=== PATIENT | male | born 1985 | race Caucasian/White ===

== ENCOUNTER 2016-07-28 10:37 | Emergency (ER) | payer OTHER ==
[2016-07-28 10:58] VITALS: BP 125/76
[2016-07-28] MEDS ORDERED: Ondansetron 4 MG/2 ML SDV IVPUSH ONE (11:28)
[2016-07-28] MEDS ORDERED: Ketorolac 30 MG/ML SDV IVPUSH ONE (11:28)
[2016-07-28] MEDS ORDERED: methylPREDNISolone Sodium Succinate 125 MG/2 ML SDV IVPUSH ONE (11:28)
[2016-07-28] MEDS ORDERED: Sodium Chloride 0.9% 1,000 ML IV ONE (11:28)
[2016-07-28] MEDS ORDERED: diphenhydrAMINE 50 MG/ML SDV IVPUSH ONE (11:28)
[2016-07-28] MEDS ORDERED: Sodium Chloride 0.9% 10 ML Syringe FLUSH PRN (11:29)
[2016-07-28] MEDS ORDERED: Sodium Chloride 0.9% 2.5 ML Syringe FLUSH PRN (11:29)
--- NOTE | 2016-07-28 11:34 | EDM.PDOC ---
ED HPI GENERAL MEDICAL PROBLEM - General Chief Complaint: Headache Stated Complaint: VOMITTING Time Seen by Provider: 07/28/16 11:18 - History of Present Illness INITIAL COMMENTS - FREE TEXT/NARRATIVE: HISTORY AND PHYSICAL: History of present illness: The patient is a 31-year-old male who presents with a history of having a normal day yesterday with normal activities sleeping the whole night and upon awakening this morning having no headache; complaints until he stood up and suddenly felt woozy and had profound nausea. He did not vomit immediately but did have vomiting afterwards and has a frontal headache. Patient also complains of photophobia and tells me that he has a long history of headaches since 2005. He says that sometimes he would get them every day and lost a job because of this headache syndrome but his last headache was about one month ago. Has never seen a neurologist but his family doctor told him that he may have had a migraine-type headache. Patient says this headache is always in the frontal area and does not radiate and is always associated with photophobia nausea and some vomiting. This headache is not any different in character location or associated symptoms. The patient says his headaches usually last 5-6 hours but because this one was more intense he wanted to come in for treatment. He has no blurred vision and has had no recent head trauma. He has no neck pain or stiffness no recent fever chills chest pain or shortness of breath. Patient says his abdomen does hurt but that only after his been vomiting. The patient did not pass out or black out with the onset of the headache or since that time. Review of systems: As per history of present illness and below otherwise all systems reviewed and negative. Past medical history: As per history of present illness and as reviewed below otherwise noncontributory. Surgical history: As per history of present illness and as reviewed below otherwise noncontributory. Social history: No reported history of drug or alcohol abuse. Family history: As per history of present illness and as reviewed below otherwise noncontributory. Physical exam: General: Well-developed well-nourished male who is photophobic or my evaluation and benefits of been reviewed by me. He is cooperative and interactive and speaks clearly and easily HEENT: Atraumatic, normocephalic, pupils reactive, EOM intact, there is tenderness at palpation of the frontal scalp forehead area without gross sinus tenderness, negative for conjunctival pallor or scleral icterus, sclera are not injected denies in the tearing mucous membranes moist, throat clear, neck supple , nontender, trachea midline. There is no cervical adenopathy or nuchal rigidity Lungs: Clear to auscultation, breath sounds equal bilaterally, chest nontender. Heart: S1S2, regular rate and rhythm no overt murmurs Abdomen: Soft, nondistended, nontender. NABS Genitourinary: Deferred. Rectal: Deferred. Extremities: Atraumatic, negative for cords or calf pain. Neurovascular unremarkable. Neuro: Awake, alert, oriented. Cranial nerves II through XII unremarkable. Cerebellum unremarkable. Motor and sensory unremarkable throughout. Exam nonfocal. Diagnostics: CT scan of the head Therapeutics: IV fluids Zofran Toradol Solu-Medrol and benadryl 1225: CT scan results were discussed with the patient and he states that his headache is significantly improved although not completely gone. He has had no nausea and vomiting in the ER. Patient states he would like to try to go home and rest at home and will give him some medications upon discharge as well as referral to neurology and family practice clinic. I took the advice to the patient and reasons to return to the ED and he states understanding. Impression: Headache with history of episodic headaches likely migraines, improving Definitive disposition and diagnosis as appropriate pending reevaluation and review of above. 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 [No Known Home Meds] 07/28/16 [History] Past Medical History HEENT History: Reports: None Cardiovascular History: Reports: None Respiratory History: Reports: None Gastrointestinal History: Reports: None Genitourinary History: Reports: None Musculoskeletal History: Reports: None Neurological History: Reports: None Psychiatric History: Reports: None Endocrine/Metabolic History: Reports: None Hematologic History: Reports: None Oncologic (Cancer) History: Reports: None Dermatologic History: Reports: None - Infectious Disease History Infectious Disease History: Reports: None Social & Family History - Family History Family Medical History: Noncontributory - Tobacco Use Smoking Status *Q: Never Smoker - Caffeine Use Caffeine Use: Reports: None - Recreational Drug Use Recreational Drug Use: No ED ROS GENERAL - Review of Systems Review Of Systems: ROS reveals no pertinent complaints other than HPI. ED EXAM, GENERAL - Physical Exam Exam: See Below (See dictation) Course - Vital Signs Last Recorded V/S: Last Vital Signs Temp 36.4 C 07/28/16 10:55 Pulse 97 07/28/16 10:55 Resp 16 07/28/16 10:55 BP 125/76 07/28/16 10:55 Pulse Ox 98 07/28/16 10:55 - Orders/Labs/Meds Orders: Active Orders 24 hr Category Date Time Status Head wo Cont [CT] Stat Exams 07/28/16 11:28 Taken Sodium Chloride 0.9% [Saline Flush] Med 07/28/16 11:29 Active 10 ml FLUSH ASDIRECTED PRN Sodium Chloride 0.9% [Saline Flush] Med 07/28/16 11:29 Active 2.5 ml FLUSH ASDIRECTED PRN Saline Lock Insert [OM.PC] Stat Oth 07/28/16 11:28 Ordered Medication Orders Sodium Chloride (Saline Flush) 10 ml FLUSH ASDIRECTED PRN PRN Reason: Keep Vein Open Last Admin: 07/28/16 11:40 Dose: 10 ml Sodium Chloride (Saline Flush) 2.5 ml FLUSH ASDIRECTED PRN PRN Reason: Keep Vein Open Last Admin: 07/28/16 11:40 Dose: 2.5 ml Meds: Medications Generic Name Dose Route Start Last Admin Trade Name Freq PRN Reason Stop Dose Admin Sodium Chloride 10 ml 07/28/16 11:29 07/28/16 11:40 Saline Flush FLUSH 10 ml ASDIRECTED PRN Administration Keep Vein Open Sodium Chloride 2.5 ml 07/28/16 11:29 07/28/16 11:40 Saline Flush FLUSH 2.5 ml ASDIRECTED PRN Administration Keep Vein Open Discontinued Medications Generic Name Dose Route Start Last Admin Trade Name Freq PRN Reason Stop Dose Admin Diphenhydramine HCl 50 mg 07/28/16 11:28 07/28/16 11:40 Benadryl IVPUSH 07/28/16 11:29 50 mg ONETIME ONE Administration Sodium Chloride 1,000 mls @ 999 mls/hr 07/28/16 11:28 07/28/16 11:39 Normal Saline IV 07/28/16 12:28 999 mls/hr STAT ONE Administration Ketorolac Tromethamine 30 mg 07/28/16 11:28 07/28/16 11:39 Toradol IVPUSH 07/28/16 11:29 30 mg ONETIME ONE Administration Methylprednisolone Sodium Succinate 125 mg 07/28/16 11:28 07/28/16 11:39 Solu-Medrol IVPUSH 07/28/16 11:29 125 mg ONETIME ONE Administration Ondansetron HCl 4 mg 07/28/16 11:28 07/28/16 11:40 Zofran IVPUSH 07/28/16 11:29 4 mg ONETIME ONE Administration Departure - Departure Time of Disposition: 12:32 Disposition: Home, Self-Care 01 Condition: good Clinical Impression: Other headache syndrome, Migraine Referrals: PCP,None [Primary Care Provider] - Forms: ED Department Discharge Additional Instructions: The following information is given to patients seen in the emergency department who are being discharged to home. This information is to outline your options for follow-up care. We provide all patients seen in our emergency department with a follow-up referral. The need for follow-up, as well as the timing and circumstances, are variable depending upon the specifics of your emergency department visit. If you don't have a primary care physician on staff, we will provide you with a referral. We always advise you to contact your personal physician following an emergency department visit to inform them of the circumstance of the visit and for follow-up with them and/or the need for any referrals to a consulting specialist. The emergency department will also refer you to a specialist when appropriate. This referral assures that you have the opportunity for followup care with a specialist. All of these measure are taken in an effort to provide you with optimal care, which includes your followup. Under all circumstances we always encourage you to contact your private physician who remains a resource for coordinating your care. When calling for followup care, please make the office aware that this follow-up is from your recent emergency room visit. If for any reason you are refused follow-up, please contact the [facility] emergency department at and ask to speak to the emergency department charge nurse. [facility] Primary care- Internal Medicine and Family [facility] [address] [place] [address] [id number] [facility] Specialty care-Neurology Professional Building [address] [place] [address], [address] [place] [address] Physical medications as needed and prescribed, rest and push hydration. Please return to ER as needed and as we discussed in please call for followup both in primary care as well as with her neurologist. - My Orders Last 24 Hours: My Active Orders 07/28/16 11:28 Head wo Cont [CT] Stat Saline Lock Insert [OM.PC] Stat 07/28/16 11:29 Sodium Chloride 0.9% [Saline Flush] 10 ml FLUSH ASDIRECTED PRN Sodium Chloride 0.9% [Saline Flush] 2.5 ml FLUSH ASDIRECTED PRN - Assessment/Plan Last 24 Hours: My Active Orders 07/28/16 11:28 Head wo Cont [CT] Stat Saline Lock Insert [OM.PC] Stat 07/28/16 11:29 Sodium Chloride 0.9% [Saline Flush] 10 ml FLUSH ASDIRECTED PRN Sodium Chloride 0.9% [Saline Flush] 2.5 ml FLUSH ASDIRECTED PRN
[2016-07-28] MEDS ORDERED: Acetaminophen/Butalbital/Caffeine 325-50-40 MG Tab PO ONE (12:35)
--- NOTE | 2016-07-30 17:14 | CT ---
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 Site : 1986 Study: CT Head WO CONT [id number]/18/2017 12:04:25 PM Ordering Physician: Carissa Leal Final Report: INDICATION: PT STATES HEADACHE RADIATING TO BILATERAL EYES STARTING 3 HOURS AGO Technique: Non-contrast head CT scan. Radiation dose reduction techniques applied. Findings: No abnormal foci of altered attenuation in the brain parenchyma. No midline shift or mass effect. No hydrocephalus. Probable small arachnoid cyst located anterior to the left temporal lobe. No other abnormal extra-axial fluid collections. No abnormalities identified in the visualized portions of the paranasal sinuses , skull, and scalp. Impression: No evidence of acute intracranial abnormalities. Dictated by: Rakesh Powell MD @ 07/28/2016 12:18:18 (Electronic Signature) Report Signed by Proxy and Original Signed Document filed in the Medical Record. [facility]
== END 2016-07-28 12:51 | disposition home or self-care (01) ==
LOC: MW.ED 10:37
DX: G44.89 Other headache syndrome (principal); G43.909 Migraine, unspecified, not intractable, without status migrainosus
CPT/HCPCS: 70450; 96361; 96374; 96375; 99284; A9270; J1200; J1885; J2405; J2930; J7040

== ENCOUNTER 2016-08-26 18:21 | Emergency (ER) | payer OTHER ==
[2016-08-26] MEDS ORDERED: Ketorolac 30 MG/ML SDV IVPUSH ONE (18:52)
[2016-08-26] MEDS ORDERED: Sodium Chloride 0.9% 1,000 ML IV ONE (18:52)
--- NOTE | 2016-08-26 19:17 | EDM.PDOC ---
ED HPI GENERAL MEDICAL PROBLEM - General Chief Complaint: General Stated Complaint: FEVER, BODY ACHES, CHILLS, COUGH Time Seen by Provider: 08/26/16 18:45 Source of Information: Reports: Patient History Limitations: Reports: No limitations - History of Present Illness INITIAL COMMENTS - FREE TEXT/NARRATIVE: History of present illness: [31-year-old male presenting with with general complaint of fever cough, congestion and weakness and malaise. Indicates he has had fever and cough off and on for vascular basis but he has felt increasingly worse today.] Review of systems: As per history of present illness and below otherwise all systems reviewed and negative. Past medical history: As per history of present illness and as reviewed below otherwise noncontributory. Surgical history: As per history of present illness and as reviewed below otherwise noncontributory. Social history: No reported history of drug or alcohol abuse. Family history: As per history of present illness and as reviewed below otherwise noncontributory. Physical exam: HEENT: Atraumatic, normocephalic, pupils reactive, negative for conjunctival pallor or scleral icterus, mucous membranes moist,bilateral TM's noted to be red dull and bulgingthroat clear, neck supple, nontender, trachea midline. Lungs: Clear to auscultation, breath sounds equal bilaterally, chest nontender. Heart: S1S2, regular, negative for clicks, rubs, or JVD. Abdomen: Soft, nondistended, nontender. Negative for masses or hepatosplenomegaly. Negative for costovertebral tenderness. Pelvis: Stable nontender. Genitourinary: Deferred. Rectal: Deferred. Extremities: Atraumatic, negative for cords or calf pain. Neurovascular unremarkable. Neuro: Awake, alert, oriented. Cranial nerves II through XII unremarkable. Cerebellum unremarkable. Motor and sensory unremarkable throughout. Exam nonfocal. Diagnostics: [CBC, CMP, RSV, influenza AB] Therapeutics: [IV fluid, Toradol] Impression: [Otitis media and viral syndrome ] Plan: [antibitotics] Definitive disposition and diagnosis as appropriate pending reevaluation and review of above. Generalized Pain Score (Numeric/FACES): 7 - Related Data Allergies Allergy/AdvReac Type Severity Reaction Status Date / Time No Known Allergies Allergy Verified 08/26/16 18:40 Home Meds: Home Meds . [No Known Home Meds] 07/28/16 [History] Past Medical History - Past Health History Medical/Surgical History: Denies Medical/Surgical History HEENT History: Reports: None Cardiovascular History: Reports: None Respiratory History: Reports: None Gastrointestinal History: Reports: None Genitourinary History: Reports: None Musculoskeletal History: Reports: None Neurological History: Reports: None Psychiatric History: Reports: None Endocrine/Metabolic History: Reports: None Hematologic History: Reports: None Oncologic (Cancer) History: Reports: None Dermatologic History: Reports: None - Infectious Disease History Infectious Disease History: Reports: None Social & Family History - Family History Family Medical History: Noncontributory - Tobacco Use Smoking Status *Q: Never Smoker - Caffeine Use Caffeine Use: Reports: Coffee Caffeine Use Comment: 1 cup - Recreational Drug Use Recreational Drug Use: No ED ROS GENERAL - Review of Systems Review Of Systems: See Below (See history of present illness) ED EXAM, GENERAL - Physical Exam Exam: See Below (See history of present illness) Course - Vital Signs Last Recorded V/S: Last Vital Signs Temp 39.2 C H 08/26/16 19:19 Pulse 108 H 08/26/16 18:42 Resp 16 08/26/16 18:42 BP 118/66 08/26/16 18:42 Pulse Ox 95 08/26/16 18:42 - Orders/Labs/Meds Orders: Active Orders 24 hr Category Date Time Status CULTURE STREP A CONFIRMATION [RM] Stat Lab 08/26/16 19:25 Results STREP SCRN A RAPID W CULT CONF [RM] Stat Lab 08/26/16 19:25 Results Labs: Laboratory Tests 08/26/16 08/26/16 Range/Units 19:05 19:05 WBC 7.62 (4.0-11.0) K/uL RBC 4.88 (4.50-5.90) M/uL Hgb 15.5 (13.0-17.0) g/dL Hct 44.1 (38.0-50.0) % MCV 90.4 (80.0-98.0) fL MCH 31.8 (27.0-32.0) pg MCHC 35.1 (31.0-37.0) g/dL RDW Std Deviation 39.8 (28.0-62.0) fl RDW Coeff of Delmy 12 (11.0-15.0) % Plt Count 173 (150-400) K/uL MPV 9.70 (7.40-12.00) fL Neut % (Auto) 64.0 (48.0-80.0) % Lymph % (Auto) 11.5 L (16.0-40.0) % Swisher % (Auto) 9.8 (0.0-15.0) % Eos % (Auto) 14.6 H (0.0-7.0) % Baso % (Auto) 0.1 (0.0-1.5) % Neut # (Auto) 4.9 (1.4-5.7) K/uL Lymph # (Auto) 0.9 (0.6-2.4) K/uL Swisher # (Auto) 0.8 (0.0-0.8) K/uL Eos # (Auto) 1.1 H (0.0-0.7) K/uL Baso # (Auto) 0.0 (0.0-0.1) K/uL Nucleated RBC % 0.0 /100WBC Nucleated RBCs # 0 K/uL Sodium 140 (136-146) mmol/L Potassium 3.6 (3.5-5.1) mmol/L Chloride 107 (98-110) mmol/L Carbon Dioxide 22 (21-31) mmol/L BUN 14 (6.0-23.0) mg/dL Creatinine 1.0 (0.6-1.5) mg/dL Est Cr Clr Drug Dosing 104.50 mL/min Estimated GFR (MDRD) > 60.0 ml/min Glucose 99 (60-110) mg/dL Calcium 9.2 (8.8-10.8) mg/dL Total Bilirubin 0.4 (0.1-1.5) mg/dL AST 20 (5-40) IU/L ALT 20 (8-54) IU/L Alkaline Phosphatase 84 (40-150) Total Protein 7.1 (6.0-8.0) g/dL Albumin 4.4 (3.5-5.0) g/dL Globulin 2.7 (2.0-3.5) g/dL Albumin/Globulin Ratio 1.6 (1.3-2.8) Meds: Medications Discontinued Medications Generic Name Dose Route Start Last Admin Trade Name Freq PRN Reason Stop Dose Admin Sodium Chloride 1,000 mls @ 999 mls/hr 08/26/16 18:52 08/26/16 19:15 Normal Saline IV 08/26/16 19:52 999 mls/hr STAT ONE Administration Ketorolac Tromethamine 30 mg 08/26/16 18:52 08/26/16 19:16 Toradol IVPUSH 08/26/16 18:53 30 mg ONETIME ONE Administration Departure - Departure Time of Disposition: 20:26 Disposition: Home, Self-Care 01 Condition: good Clinical Impression: Otitis media Forms: ED Department Discharge Additional Instructions: The following information is given to patients seen in the emergency department who are being discharged to home. This information is to outline your options for follow-up care. We provide all patients seen in our emergency department with a follow-up referral. The need for follow-up, as well as the timing and circumstances, are variable depending upon the specifics of your emergency department visit. If you don't have a primary care physician on staff, we will provide you with a referral. We always advise you to contact your personal physician following an emergency department visit to inform them of the circumstance of the visit and for follow-up with them and/or the need for any referrals to a consulting specialist. The emergency department will also refer you to a specialist when appropriate. This referral assures that you have the opportunity for follow-up care with a specialist. All of these measure are taken in an effort to provide you with optimal care, which includes your follow-up. Under all circumstances we always encourage you to contact your private physician who remains a resource for coordinating your care. When calling for follow-up care, please make the office aware that this follow-up is from your recent emergency room visit. If for any reason you are refused follow-up, please contact the [facility] Emergency Department at and asked to speak to the emergency department charge nurse. take medication as directed f/u with PCP in 1-2 days return to ED as needed as discussed - My Orders Last 24 Hours: My Active Orders 08/26/16 19:25 CULTURE STREP A CONFIRMATION [RM] Stat STREP SCRN A RAPID W CULT CONF [RM] Stat - Assessment/Plan Last 24 Hours: My Active Orders 08/26/16 19:25 CULTURE STREP A CONFIRMATION [RM] Stat STREP SCRN A RAPID W CULT CONF [RM] Stat
[2016-08-26 19:30] LABS: CHLORIDE,CL 107 mmol/L (98-110); SODIUM,NA 140 mmol/L (136-146)
[2016-08-26 20:27] VITALS: BP 109/52
== END 2016-08-26 20:47 | disposition home or self-care (01) ==
LOC: MW.ED 18:21
DX: H66.90 Otitis media, unspecified, unspecified ear (principal)
CPT/HCPCS: 36415; 80053; 85025; 87081; 87804; 87807; 87880; 96361; 96374; 99283; J1885; J7040; 99284

== ENCOUNTER 2016-08-28 16:35 | Emergency (ER) | payer OTHER ==
[2016-08-28] MEDS ORDERED: Acetaminophen 500 MG Tab PO ONE (17:16)
[2016-08-28] MEDS ORDERED: Sodium Chloride 0.9% 1,000 ML IV ONE (17:18)
--- NOTE | 2016-08-28 17:35 | EDM.PDOC ---
ED HPI SEPSIS - General Chief Complaint: Fever Stated Complaint: TROUBLE BREATHING/CHEST PAIN/VOMITING Time Seen by Provider: 08/28/16 16:47 Source of Information: Reports: Patient History Limitations: Reports: No limitations - History of Present Illness INITIAL COMMENTS - FREE TEXT/NARRATIVE: Presents reporting a a three-day history of headache, body aches, fever, cough, joint aches. He today he vomited 5 times. The patient states that he was in this ER on August 26 for the same symptoms he was diagnosed with a "infection" and sent home on Augmentin. He states that his symptoms have only worsened. He does not smoke has no medical problems and is otherwise healthy. 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 A review of the records indicates he was diagnosed with otitis media and a viral syndrome. Strep screen, RSV and influenza A and B were negative. His white count on that date was 7.6 with 11.5% lymphocytes and 14.6% eosinophils otherwise chemistry and hematology were unremarkable. - Related Data Allergies/ADRs: Allergies Allergy/AdvReac Type Severity Reaction Status Date / Time No Known Allergies Allergy Verified 08/28/16 16:39 Home Meds: Home Meds Amoxicillin/Potassium Clav [Augmentin 875-125 Tablet] 1 tab PO BID 08/28/16 [ History] Past Medical History - Past Health History Medical/Surgical History: Denies Medical/Surgical History HEENT History: Reports: None Cardiovascular History: Reports: None Respiratory History: Reports: None Gastrointestinal History: Reports: None Genitourinary History: Reports: None Musculoskeletal History: Reports: None Neurological History: Reports: None Psychiatric History: Reports: None Endocrine/Metabolic History: Reports: None Hematologic History: Reports: None Oncologic (Cancer) History: Reports: None Dermatologic History: Reports: None - Infectious Disease History Infectious Disease History: Reports: None - Past Surgical History GI Surgical History: Reports: Appendectomy Social & Family History - Family History Family Medical History: Noncontributory - Tobacco Use Smoking Status *Q: Never Smoker Second Hand Smoke Exposure: No - Caffeine Use Caffeine Use: Reports: Coffee Caffeine Use Comment: 1 cup per day - Recreational Drug Use Recreational Drug Use: No ED ROS GENERAL - Review of Systems Review Of Systems: See Below Constitutional: Reports: fever, chills HEENT: Reports: No symptoms Respiratory: Reports: Cough. Denies: Shortness of Breath, Wheezing Cardiovascular: Reports: No symptoms. Denies: Chest pain Endocrine: Reports: no symptoms GI/Abdominal: Reports: Nausea, Vomiting (today only 5 times). Denies: Diarrhea : Reports: no symptoms Musculoskeletal: Reports: joint pain, muscle pain Skin: Reports: no symptoms Neurological: Reports: Headache Psychiatric: Reports: No symptoms Hematologic/Lymphatic: Reports: no symptoms Immunologic: Reports: no symptoms ED EXAM, SEPSIS - Physical Exam Exam: See Below Exam Limited By: No limitations General Appearance: alert, mild distress Ears: normal external exam, other (pink TM left with mild bulge) Nose: normal inspection Throat/Mouth: Normal inspection, Pharyngeal erythema Head: atraumatic, normocephalic Neck: normal inspection. No: lymphadenopathy (L), lymphadenopathy (R) Respiratory/Chest: no respiratory distress, lungs clear Cardiovascular: normal peripheral pulses, regular rate, rhythm, no murmur GI/Abdominal: soft Back: normal inspection Extremities: normal inspection Neurological: alert, oriented, normal cognition Psychiatric: normal affect, normal mood Skin: Warm, Dry, Intact, Normal color, No rash Course - Vital Signs Last Recorded V/S: Last Vital Signs Temp 38.5 C H 08/28/16 18:41 Pulse 135 H 08/28/16 18:41 Resp 16 08/28/16 18:41 BP 120/68 08/28/16 18:41 Pulse Ox 98 08/28/16 18:41 - Orders/Labs/Meds Orders: Active Orders 24 hr Category Date Time Status Chest 2V [CR] Stat Exams 08/28/16 18:43 Taken CULTURE BLOOD [BC] Stat Lab 08/28/16 17:35 Received CULTURE BLOOD [BC] Stat Lab 08/28/16 17:40 Received Labs: Laboratory Tests 08/28/16 08/28/16 Range/Units 17:35 18:50 WBC 5.19 (4.0-11.0) K/uL RBC 4.96 (4.50-5.90) M/uL Hgb 15.7 (13.0-17.0) g/dL Hct 45.6 (38.0-50.0) % MCV 91.9 (80.0-98.0) fL MCH 31.7 (27.0-32.0) pg MCHC 34.4 (31.0-37.0) g/dL RDW Std Deviation 41.3 (28.0-62.0) fl RDW Coeff of Delmy 12 (11.0-15.0) % Plt Count 147 L (150-400) K/uL MPV 10.00 (7.40-12.00) fL Neut % (Auto) 67.4 (48.0-80.0) % Lymph % (Auto) 15.6 L (16.0-40.0) % [place] % (Auto) 11.6 (0.0-15.0) % Eos % (Auto) 5.2 (0.0-7.0) % Baso % (Auto) 0.2 (0.0-1.5) % Neut # (Auto) 3.5 (1.4-5.7) K/uL Lymph # (Auto) 0.8 (0.6-2.4) K/uL [place] # (Auto) 0.6 (0.0-0.8) K/uL Eos # (Auto) 0.3 (0.0-0.7) K/uL Baso # (Auto) 0.0 (0.0-0.1) K/uL Nucleated RBC % 0.0 /100WBC Nucleated RBCs # 0 K/uL Urine Color YELLOW Urine Appearance CLEAR Urine pH 5.5 (5.0-8.0) Ur Specific [place] >= 1.030 (1.001-1.035) Urine Protein NEGATIVE (NEGATIVE) mg/dL Urine Glucose (UA) NEGATIVE (NEGATIVE) mg/dL Urine Ketones NEGATIVE (NEGATIVE) mg/dL Urine Occult Blood TRACE-LYSED (NEGATIVE) Urine Nitrite NEGATIVE (NEGATIVE) Urine Bilirubin NEGATIVE (NEGATIVE) Urine Urobilinogen 0.2 (<2.0) EU/dL Ur Leukocyte Esterase NEGATIVE (NEGATIVE) Urine RBC 0-2 (0-2/HPF) Urine WBC 0-1 (0-5/HPF) Ur Epithelial Cells RARE (NONE-FEW) Urine Bacteria RARE (NEGATIVE) Meds: Medications Discontinued Medications Generic Name Dose Route Start Last Admin Trade Name Freq PRN Reason Stop Dose Admin Acetaminophen 1,000 mg 08/28/16 17:16 08/28/16 17:26 Tylenol Extra Strength PO 08/28/16 17:17 1,000 mg ONETIME ONE Administration Sodium Chloride 1,000 mls @ 999 mls/hr 08/28/16 17:18 08/28/16 17:26 Normal Saline IV 08/28/16 18:18 999 mls/hr .BOLUS ONE Administration Departure - Departure Time of Disposition: 20:11 Disposition: Home, Self-Care 01 Condition: good Clinical Impression: Fever Qualifiers: Encounter type: subsequent encounter Referrals: PCP,None [Primary Care Provider] - [facility] [Outside] [facility] [Outside] Forms: ED Department Discharge Additional Instructions: 1. Finish your antibiotics. 2. Drink plenty of fluids 3. You may take 500-1000mg of Tylenol three times a day for body aches and fever. 4. Follow up with your primary care provider promptly if symptoms worsen or do not improve as expected. - My Orders Last 24 Hours: My Active Orders 08/28/16 17:35 CULTURE BLOOD [BC] Stat 08/28/16 17:40 CULTURE BLOOD [BC] Stat 08/28/16 18:43 Chest 2V [CR] Stat - Assessment/Plan Last 24 Hours: My Active Orders 08/28/16 17:35 CULTURE BLOOD [BC] Stat 08/28/16 17:40 CULTURE BLOOD [BC] Stat 08/28/16 18:43 Chest 2V [CR] Stat
[2016-08-28 20:50] VITALS: BP 129/74
--- NOTE | 2016-08-29 14:13 | CR ---
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 Site : 1985 Study: XRay Chest [id number]/18/2017 7:22:06 PM Ordering Physician: Amando Vega Final Report: HISTORY: Fever and cough. TECHNIQUE: Two views of the chest. COMPARISON: No prior. FINDINGS: Cardiac size and pulmonary vasculature are within normal limits. There is no acute lung infiltrate or pulmonary edema. No pneumothorax or pleural effusion. Scoliosis is noted. IMPRESSION: No acute lung infiltrate. Dictated by Bakari Chairez MD @ 08/28/2016 7:38:10 PM Dictated by: Bakari Chairez MD @ 08/28/2016 19:38:14 (Electronic Signature) Report Signed by Proxy and Original Signed Document filed in the Medical Record. [email or web address]
== END 2016-08-28 20:45 | disposition home or self-care (01) ==
LOC: MW.ED 16:35
DX: R50.9 Fever, unspecified (principal); Z90.49 Acquired absence of other specified parts of digestive tract
CPT/HCPCS: 36415; 71020; 81001; 85025; 87040; 96360; 96361; 99284; A9270; J7040; 99282

== ENCOUNTER 2016-09-13 17:37 | Emergency (ER) | payer OTHER ==
[2016-09-13 17:55] VITALS: BP 133/74
--- NOTE | 2016-09-13 18:01 | EDM.PDOC ---
ED HPI Trauma - General Chief Complaint: Lower Extremity Injury/Pain Stated Complaint: INFECTED/INGROWN NAIL Time Seen by Provider: 09/13/16 17:59 Source: Reports: Patient History Limitations: Reports: No limitations - History of Present Illness INITIAL COMMENTS - FREE TEXT/NARRATIVE: History of present illness: [31-year-old male presents with concerns of history of ingrown toenails. Patient indicates he is new to the area and has had the toenails removed where one has come back partially and the other is from back [place]. Patient indicates that historically they would get so bad and become quite infected may need to be treated with antibiotics. Patient indicates that he was told that they needed to be removed again but that he had to be infection free. Patient indicates that they are not infected at this time but he doesn't know where to go to have them removed.] Review of systems: As per history of present illness and below otherwise all systems reviewed and negative. Past medical history: As per history of present illness and as reviewed below otherwise noncontributory. Surgical history: As per history of present illness and as reviewed below otherwise noncontributory. Social history: No reported history of drug or alcohol abuse. Family history: As per history of present illness and as reviewed below otherwise noncontributory. Physical exam: HEENT: Atraumatic, normocephalic, pupils reactive, negative for conjunctival pallor or scleral icterus, mucous membranes moist, throat clear, neck supple, nontender, trachea midline. Lungs: Clear to auscultation, breath sounds equal bilaterally, chest nontender. Heart: S1S2, regular, negative for clicks, rubs, or JVD. Abdomen: Soft, nondistended, nontender. Negative for masses or hepatosplenomegaly. Negative for costovertebral tenderness. Pelvis: Stable nontender. Genitourinary: Deferred. Rectal: Deferred. Extremities: Atraumatic, negative for cords or calf pain. Neurovascular unremarkable. Neuro: Awake, alert, oriented. Cranial nerves II through XII unremarkable. Cerebellum unremarkable. Motor and sensory unremarkable throughout. Exam nonfocal. Patient's goals assessment is benign save verbalized ingrown nails that are not infected currently. Give her prescription to patient to fill in case they begin to become infected before he can be seen outpatient Diagnostics: [] Therapeutics: [] Impression: [Bilateral great toe ingrown nails without infection] Plan: [Prescription and referral to family practice as well as podiatry] Definitive disposition and diagnosis as appropriate pending reevaluation and review of above. Allergies/ADRs: Allergies No Known Allergies Allergy (Verified 09/13/16 17:55) Home Medications: Ambulatory Orders Cephalexin [Keflex] 500 mg PO QID #40 capsule 09/13/16 Past Medical History - Past Health History Medical/Surgical History: Denies Medical/Surgical History HEENT History: Reports: None Cardiovascular History: Reports: None Respiratory History: Reports: None Gastrointestinal History: Reports: None Genitourinary History: Reports: None Musculoskeletal History: Reports: None Neurological History: Reports: None Psychiatric History: Reports: None Endocrine/Metabolic History: Reports: None Hematologic History: Reports: None Oncologic (Cancer) History: Reports: None Dermatologic History: Reports: None - Infectious Disease History Infectious Disease History: Reports: None - Past Surgical History GI Surgical History: Reports: Appendectomy Social & Family History - Family History Family Medical History: Noncontributory - Tobacco Use Smoking Status *Q: Never Smoker Second Hand Smoke Exposure: No - Caffeine Use Caffeine Use: Reports: Coffee Caffeine Use Comment: 1 cup per day - Recreational Drug Use Recreational Drug Use: No Review of Systems - Review of Systems Review Of Systems: See Below (See history of present illness) Trauma Exam - Physical Exam Exam: See Below (History of present illness) Course - Vital Signs Last Recorded V/S: Last Vital Signs Temp 36.8 C 09/13/16 17:53 Pulse 94 09/13/16 17:53 Resp 16 09/13/16 17:53 BP 133/74 09/13/16 17:53 Pulse Ox 96 09/13/16 17:53 Departure - Departure Time of Disposition: 18:02 Disposition: Home, Self-Care 01 Condition: good Clinical Impression: Ingrown toenail without infection Forms: ED Department Discharge Additional Instructions: The following information is given to patients seen in the emergency department who are being discharged to home. This information is to outline your options for follow-up care. We provide all patients seen in our emergency department with a follow-up referral. The need for follow-up, as well as the timing and circumstances, are variable depending upon the specifics of your emergency department visit. If you don't have a primary care physician on staff, we will provide you with a referral. We always advise you to contact your personal physician following an emergency department visit to inform them of the circumstance of the visit and for follow-up with them and/or the need for any referrals to a consulting specialist. The emergency department will also refer you to a specialist when appropriate. This referral assures that you have the opportunity for follow-up care with a specialist. All of these measure are taken in an effort to provide you with optimal care, which includes your follow-up. Under all circumstances we always encourage you to contact your private physician who remains a resource for coordinating your care. When calling for follow-up care, please make the office aware that this follow-up is from your recent emergency room visit. If for any reason you are refused follow-up, please contact the [facility] Emergency Department at and asked to speak to the emergency department charge nurse. Followup with the primary care provider and/or sales and service advisor your preference for resolution of her ingrown toenail You've been provided prescription in case they start becoming infected before he can get in to be seen and treated Return to ED as needed as discussed [facility] [address] [place] [id number]
== END 2016-09-13 18:00 | disposition home or self-care (01) ==
LOC: MW.ED 17:37
DX: L60.0 Ingrowing nail (principal); Z90.49 Acquired absence of other specified parts of digestive tract
CPT/HCPCS: 99282; 99283

== ENCOUNTER 2016-10-23 19:36 | Emergency (ER) | payer OTHER ==
[2016-10-23 19:50] VITALS: BP 123/73
[2016-10-23] MEDS ORDERED: cefTRIAXone 2 GM in Premix Bag 1 BAG IV ONE (20:16)
[2016-10-23] MEDS ORDERED: Ketorolac 30 MG/ML SDV IVPUSH ONE (20:16)
[2016-10-23] MEDS ORDERED: Sodium Chloride 0.9% 1,000 ML IV ONE (20:16)
--- NOTE | 2016-10-23 20:33 | EDM.PDOC ---
ED HPI GENERAL MEDICAL PROBLEM - General Chief Complaint: Lower Extremity Injury/Pain Stated Complaint: POSSIBLE INFECTION RT FOOT/TOENAIL Time Seen by Provider: 10/23/16 20:15 Source of Information: Reports: Patient History Limitations: Reports: No Limitations - History of Present Illness INITIAL COMMENTS - FREE TEXT/NARRATIVE: History of present illness: [31-year-old male presenting with recent great toenail removal. Indicates that they're painful beginning to look infected.] Review of systems: As per history of present illness and below otherwise all systems reviewed and negative. Past medical history: As per history of present illness and as reviewed below otherwise noncontributory. Surgical history: As per history of present illness and as reviewed below otherwise noncontributory. Social history: No reported history of drug or alcohol abuse. Family history: As per history of present illness and as reviewed below otherwise noncontributory. Physical exam: HEENT: Atraumatic, normocephalic, pupils reactive, negative for conjunctival pallor or scleral icterus, mucous membranes moist, throat clear, neck supple, nontender, trachea midline. Lungs: Clear to auscultation, breath sounds equal bilaterally, chest nontender. Heart: S1S2, regular, negative for clicks, rubs, or JVD. Abdomen: Soft, nondistended, nontender. Negative for masses or hepatosplenomegaly. Negative for costovertebral tenderness. Pelvis: Stable nontender. Genitourinary: Deferred. Rectal: Deferred. Extremities: Atraumatic, negative for cords or calf pain. Neurovascular unremarkable. Neuro: Awake, alert, oriented. Cranial nerves II through XII unremarkable. Cerebellum unremarkable. Motor and sensory unremarkable throughout. Exam nonfocal. Skin: Obvious area of toenail plate extraction with some amount of purulent drainage and erythema around the cuticle Diagnostics: [] Therapeutics: [Rocephin, Toradol] Impression: [Left AMA] Plan: [] Definitive disposition and diagnosis as appropriate pending reevaluation and review of above. Right 1-Hallux Pain Score (Numeric/FACES): 9 Left 1-Hallux Pain Score (Numeric/FACES): 9 - Related Data Allergies Allergy/AdvReac Type Severity Reaction Status Date / Time No Known Allergies Allergy Verified 10/23/16 19:44 Home Meds: Home Meds . [No Known Home Meds] 10/23/16 [History] Past Medical History - Past Health History Medical/Surgical History: Denies Medical/Surgical History HEENT History: Reports: None Cardiovascular History: Reports: None Respiratory History: Reports: None Gastrointestinal History: Reports: None Genitourinary History: Reports: Renal Calculus Musculoskeletal History: Reports: None Neurological History: Reports: None Psychiatric History: Reports: None Endocrine/Metabolic History: Reports: None Hematologic History: Reports: None Oncologic (Cancer) History: Reports: None Dermatologic History: Reports: None - Infectious Disease History Infectious Disease History: Reports: Chicken Pox - Past Surgical History GI Surgical History: Reports: Appendectomy Musculoskeletal Surgical History: Reports: Other (See Below) Other Musculoskeletal Surgeries/Procedures:: right hand surgery Social & Family History - Family History Family Medical History: Noncontributory - Tobacco Use Smoking Status *Q: Former Smoker Used Tobacco, but Quit: Yes Month Tobacco Last Used: 7 years ago Second Hand Smoke Exposure: No - Caffeine Use Caffeine Use: Reports: Energy Drinks Caffeine Use Comment: 1 drink "every now and then" - Recreational Drug Use Recreational Drug Use: No Review of Systems - Review of Systems Review Of Systems: See Below (See history of present illness) ED EXAM, GENERAL - Physical Exam Exam: See Below (See history of present illness) Course - Vital Signs Last Recorded V/S: Last Vital Signs Temp 36.4 C 10/23/16 19:45 Pulse 84 10/23/16 19:45 Resp 19 10/23/16 19:45 BP 123/73 10/23/16 19:45 Pulse Ox 96 10/23/16 19:45 - Orders/Labs/Meds Orders: Active Orders 24 hr Category Date Time Status Sodium Chloride 0.9% [Normal Saline] 1,000 ml Med 10/23/16 20:16 Ordered IV STAT cefTRIAXone [Rocephin in Dextrose,Iso-Osm 2 GM/50 ML] 2 Med 10/23/16 20:16 Ordered gm Premix Bag 1 bag IV ONETIME Medication Orders Sodium Chloride (Normal Saline) 1,000 mls @ 999 mls/hr IV STAT ONE Stop: 10/23/16 21:16 Ceftriaxone Sodium/Dextrose 2 (gm/ Premix) 50 mls @ 100 mls/hr IV ONETIME ONE Stop: 10/23/16 20:45 Meds: Medications Generic Name Dose Route Start Last Admin Trade Name Freq PRN Reason Stop Dose Admin Sodium Chloride 1,000 mls @ 999 mls/hr 10/23/16 20:16 Normal Saline IV 10/23/16 21:16 STAT ONE Ceftriaxone Sodium/Dextrose 2 50 mls @ 100 mls/hr 10/23/16 20:16 gm/ Premix IV 10/23/16 20:45 ONETIME ONE Discontinued Medications Generic Name Dose Route Start Last Admin Trade Name Diann PRN Reason Stop Dose Admin Ketorolac Tromethamine 30 mg 10/23/16 20:16 Toradol IVPUSH 10/23/16 20:17 ONETIME ONE Departure - Departure Time of Disposition: 20:33 Disposition: Against Medical Advice 07 Condition: Good Clinical Impression: Infection of toe - Discharge Information Forms: ED Department Discharge - My Orders Last 24 Hours: My Active Orders 10/23/16 20:16 Sodium Chloride 0.9% [Normal Saline] 1,000 ml IV STAT cefTRIAXone [Rocephin in Dextrose,Iso-Osm 2 GM/50 ML] 2 gm Premix Bag 1 bag IV ONETIME - Assessment/Plan Last 24 Hours: My Active Orders 10/23/16 20:16 Sodium Chloride 0.9% [Normal Saline] 1,000 ml IV STAT cefTRIAXone [Rocephin in Dextrose,Iso-Osm 2 GM/50 ML] 2 gm Premix Bag 1 bag IV ONETIME
== END 2016-10-23 20:10 | disposition left against medical advice (07) ==
LOC: MW.ED 19:36
DX: L08.9 Local infection of the skin and subcutaneous tissue, unspecified (principal); Z87.442 Personal history of urinary calculi; Z90.49 Acquired absence of other specified parts of digestive tract; Z98.890 Other specified postprocedural states; Z87.891 Personal history of nicotine dependence
CPT/HCPCS: 99282; 99283

== ENCOUNTER 2016-12-19 17:18 | Emergency (ER) | payer OTHER, MEDICAID ==
[2016-12-19] MEDS ORDERED: Sodium Chloride 0.9% 1,000 ML IV ONE (17:31)
[2016-12-19] MEDS ORDERED: LORazepam 2 MG/ML MDV IVPUSH ONE (17:31)
[2016-12-19] MEDS ORDERED: Prochlorperazine 10 MG/2 ML SDV IM ONE (17:32)
[2016-12-19] MEDS ORDERED: Sodium Chloride 0.9% 10 ML Syringe FLUSH PRN (17:32)
[2016-12-19] MEDS ORDERED: Sodium Chloride 0.9% 2.5 ML Syringe FLUSH PRN (17:32)
[2016-12-19] MEDS ORDERED: diphenhydrAMINE 50 MG/ML SDV IVPUSH ONE (17:32)
--- NOTE | 2016-12-19 17:33 | EDM.PDOC ---
ED HPI GENERAL MEDICAL PROBLEM - General Chief Complaint: Headache Stated Complaint: SEVERE MIGRAINE Time Seen by Provider: 12/19/16 17:29 Source of Information: Reports: Patient History Limitations: Reports: No Limitations - History of Present Illness INITIAL COMMENTS - FREE TEXT/NARRATIVE: HISTORY AND PHYSICAL: []31-year-old male presenting with migraine headache History of Present Illness: []Headache began 1.5 days ago History of having migraines in the past His last CT scan was completed in July and negative for any changes Review of Systems: As per history of present illness and below otherwise all systems reviewed and negative. Past medical history: As per history of present illness and as reviewed below otherwise noncontributory. Surgical history: As per history of present illness and as reviewed below otherwise noncontributory. Social history: No reported history of drug or alcohol abuse. Family history: As per history of present illness and as reviewed below otherwise noncontributory. Physical exam: Alert and oriented gentleman wearing his sunglasses photophobic nausea/questions in full sentences HEENT: Atraumatic, normocehpalic, pupils reactive, negative for conjunctival pallor or scleral icterus, mucous membranes moist, throat clear, neck supple, nontender, trachea midline. Lungs: Clear to auscultation, breath sounds equal bilaterally, chest non tender. Heart: S1S2, regular, negative for clicks, rubs, or JVD. Abdomen: Soft, nondistended, nontender. Negative for masses or hepatossplenmegaly. Negative for costovertebral tenderness. Pelvis: Stable nontender. Genitourinary: Deferred. Rectal: Deferred Extremities: Atraumatic, negative for cords or calf pain. Neurovascular unremarkable. Neuro: Awake, alert, oriented. Cranial nerves II through XII unremarkable. Cerebellum unremarkable. Motor and sensory unremarkable throughout. Exam nonfocal. Diagnostics: [] Therapeutics: [IV fluids Ativan Benadryl Compazine ] Impression: []Migraine headache Plan: [If headaches increase or become unmanageable with a referral to neurology] Definitive disposition and diagnosis as appropriate pending reevaluation and review of above. Onset: Sudden Duration: Day(s): (2) Location: Reports: Head Quality: Reports: Throbbing Severity: Moderate Improves with: Reports: None Worsens with: Reports: None Associated Symptoms: Reports: No Other Symptoms Frontal Headache Pain Score (Numeric/FACES): 8 - Related Data Allergies Allergy/AdvReac Type Severity Reaction Status Date / Time No Known Allergies Allergy Verified 12/19/16 17:23 Home Meds: Home Meds . [No Known Home Meds] 10/23/16 [History] Past Medical History - Past Health History Medical/Surgical History: Denies Medical/Surgical History HEENT History: Reports: None Cardiovascular History: Reports: None Respiratory History: Reports: None Gastrointestinal History: Reports: None Genitourinary History: Reports: Renal Calculus Musculoskeletal History: Reports: None Neurological History: Reports: None Psychiatric History: Reports: None Endocrine/Metabolic History: Reports: None Hematologic History: Reports: None Oncologic (Cancer) History: Reports: None Dermatologic History: Reports: None - Infectious Disease History Infectious Disease History: Reports: Chicken Pox - Past Surgical History GI Surgical History: Reports: Appendectomy Musculoskeletal Surgical History: Reports: Other (See Below) Other Musculoskeletal Surgeries/Procedures:: right hand surgery Social & Family History - Family History Family Medical History: Noncontributory - Tobacco Use Smoking Status *Q: Former Smoker Used Tobacco, but Quit: Yes Month Tobacco Last Used: 7 years ago Second Hand Smoke Exposure: No - Caffeine Use Caffeine Use: Reports: Energy Drinks Caffeine Use Comment: 1 drink "every now and then" - Recreational Drug Use Recreational Drug Use: No ED ROS GENERAL - Review of Systems Review Of Systems: ROS reveals no pertinent complaints other than HPI. - Physical Exam Exam: See Below (See dictation) Course - Vital Signs Last Recorded V/S: Last Vital Signs Temp 36.3 C 12/19/16 17:24 Pulse 100 12/19/16 18:03 Resp 18 12/19/16 17:24 BP 130/73 12/19/16 18:03 Pulse Ox 96 12/19/16 17:24 - Orders/Labs/Meds Orders: Active Orders 24 hr Category Date Time Status Sodium Chloride 0.9% [Normal Saline] 1,000 ml Med 12/19/16 17:31 Active IV STAT Sodium Chloride 0.9% [Saline Flush] Med 12/19/16 17:32 Active 10 ml FLUSH ASDIRECTED PRN Sodium Chloride 0.9% [Saline Flush] Med 12/19/16 17:32 Active 2.5 ml FLUSH ASDIRECTED PRN Saline Lock Insert [OM.PC] Stat Oth 12/19/16 17:31 Ordered Medication Orders Sodium Chloride (Normal Saline) 1,000 mls @ 999 mls/hr IV STAT ONE Stop: 12/19/16 18:31 Last Admin: 12/19/16 17:48 Dose: 999 mls/hr Sodium Chloride (Saline Flush) 10 ml FLUSH ASDIRECTED PRN PRN Reason: Keep Vein Open Last Admin: 12/19/16 17:35 Dose: 10 ml Sodium Chloride (Saline Flush) 2.5 ml FLUSH ASDIRECTED PRN PRN Reason: Keep Vein Open Last Admin: 12/19/16 17:36 Dose: 2.5 ml Meds: Medications Generic Name Dose Route Start Last Admin Trade Name Freq PRN Reason Stop Dose Admin Sodium Chloride 1,000 mls @ 999 mls/hr 12/19/16 17:31 12/19/16 17:48 Normal Saline IV 12/19/16 18:31 999 mls/hr STAT ONE Administration Sodium Chloride 10 ml 12/19/16 17:32 12/19/16 17:35 Saline Flush FLUSH 10 ml ASDIRECTED PRN Administration Keep Vein Open Sodium Chloride 2.5 ml 12/19/16 17:32 12/19/16 17:36 Saline Flush FLUSH 2.5 ml ASDIRECTED PRN Administration Keep Vein Open Discontinued Medications Generic Name Dose Route Start Last Admin Trade Name Freq PRN Reason Stop Dose Admin Diphenhydramine HCl 25 mg 12/19/16 17:32 12/19/16 17:50 Benadryl IVPUSH 12/19/16 17:33 25 mg ONETIME ONE Administration Lorazepam 1 mg 12/19/16 17:31 12/19/16 17:52 Ativan IVPUSH 12/19/16 17:32 1 mg ONETIME ONE Administration Prochlorperazine Edisylate 10 mg 12/19/16 17:32 12/19/16 17:55 Compazine IM 12/19/16 17:33 10 mg ONETIME ONE Administration Departure - Departure Time of Disposition: 18:28 Disposition: Home, Self-Care 01 Condition: Good Clinical Impression: Migraine headache Qualifiers: Migraine type: unspecified Status migrainosus presence: without status migrainosus Intractability: not intractable Qualified Code(s): G43.909 - Migraine, unspecified, not intractable, without status migrainosus - Discharge Information Instructions: Recurrent Migraine Headache, [id number] Forms: ED Department Discharge Additional Instructions: The following information is given to patients seen in the emergency department who are being discharged to home. This information is to outline your options for follow-up care. We provide all patients seen in our emergency department with a follow-up referral. The need for follow-up, as well as the timing and circumstances, are variable depending upon the specifics of your emergency department visit. If you don't have a primary care physician on staff, we will provide you with a referral. We always advise you to contact your personal physician following an emergency department visit to inform them of the circumstance of the visit and for follow-up with them and/or the need for any referrals to a consulting specialist. The emergency department will also refer you to a specialist when appropriate. This referral assures that you have the opportunity for followup care with a specialist. All of these measure are taken in an effort to provide you with optimal care, which includes your followup. Under all circumstances we always encourage you to contact your private physician who remains a resource for coordinating your care. When calling for followup care, please make the office aware that this follow-up is from your recent emergency room visit. If for any reason you are refused follow-up, please contact the [facility] emergency department at and asked to speak to the emergency department charge nurse. If migraines continue to worsen will need to follow-up with a neurologist - My Orders Last 24 Hours: My Active Orders 12/19/16 17:31 Sodium Chloride 0.9% [Normal Saline] 1,000 ml IV STAT Saline Lock Insert [OM.PC] Stat 12/19/16 17:32 Sodium Chloride 0.9% [Saline Flush] 10 ml FLUSH ASDIRECTED PRN Sodium Chloride 0.9% [Saline Flush] 2.5 ml FLUSH ASDIRECTED PRN - Assessment/Plan Last 24 Hours: My Active Orders 12/19/16 17:31 Sodium Chloride 0.9% [Normal Saline] 1,000 ml IV STAT Saline Lock Insert [OM.PC] Stat 12/19/16 17:32 Sodium Chloride 0.9% [Saline Flush] 10 ml FLUSH ASDIRECTED PRN Sodium Chloride 0.9% [Saline Flush] 2.5 ml FLUSH ASDIRECTED PRN
[2016-12-19] MEDS ORDERED: Nitroglycerin 0.4 MG Tab.SL ONE (18:50)
[2016-12-19] MEDS ORDERED: Aspirin 81 MG Tab.Chew ONE (18:50)
[2016-12-19 19:19] VITALS: BP 127/70
== END 2016-12-19 19:00 | disposition home or self-care (01) ==
LOC: MW.ED 17:18
DX: G43.909 Migraine, unspecified, not intractable, without status migrainosus (principal); Z87.442 Personal history of urinary calculi; Z90.49 Acquired absence of other specified parts of digestive tract; Z98.890 Other specified postprocedural states; Z87.891 Personal history of nicotine dependence
CPT/HCPCS: 96361; 96374; 96375; 99284; J0780; J1200; J2060; J7040

== ENCOUNTER 2017-06-11 14:00 | Emergency (ER) | payer OTHER ==
[2017-06-11] MEDS ORDERED: Diphtheria,Pertussis(Acell),Tetanus Vaccine 0.5 ML Syringe IM ONE (14:25)
--- NOTE | 2017-06-11 14:26 | EDM.PDOC ---
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 Past medical history: As per history of present illness and as reviewed below otherwise noncontributory. Surgical history: As per history of present illness and as reviewed below otherwise noncontributory. Social history: No reported history of drug or alcohol abuse. Family history: As per history of present illness and as reviewed below otherwise noncontributory. Physical exam: HEENT: Atraumatic, normocephalic, pupils reactive, negative for conjunctival pallor or scleral icterus, mucous membranes moist, throat clear, neck supple, nontender, trachea midline. Lungs: Clear to auscultation, breath sounds equal bilaterally, chest nontender. Heart: S1S2, regular, negative for clicks, rubs, or JVD. Abdomen: Soft, nondistended, nontender. Negative for masses or hepatosplenomegaly. Negative for costovertebral tenderness. Pelvis: Stable nontender. Genitourinary: Deferred. Rectal: Deferred. Extremities: Atraumatic, negative for cords or calf pain. Neurovascular unremarkable. Neuro: Awake, alert, oriented. Cranial nerves II through XII unremarkable. Cerebellum unremarkable. Motor and sensory unremarkable throughout. Exam nonfocal. Right hand unaffected above the wrist entirely neurovascularly intact abrasions over the second third and fourth PIPs some hand swelling mild no redness warmth or pus drainage, incident occurred an hour prior to arrival Entire limb is neurovascularly intact Diagnostics: [Right hand 3 views ] Therapeutics: [Tetanus status is updated ]Splint applied by nursing staff Rest ice ibuprofen Impression: [Right hand pain] Definitive disposition and diagnosis as appropriate pending reevaluation and review of above. - Related Data Allergies Allergy/AdvReac Type Severity Reaction Status Date / Time No Known Allergies Allergy Verified 06/11/17 14:15 Home Meds: Home Meds . [No Known Home Meds] 10/23/16 [History] Past Medical History - Past Health History Medical/Surgical History: Denies Medical/Surgical History HEENT History: Reports: None Cardiovascular History: Reports: None Respiratory History: Reports: None Gastrointestinal History: Reports: None Genitourinary History: Reports: Renal Calculus Musculoskeletal History: Reports: None Neurological History: Reports: None Psychiatric History: Reports: None Endocrine/Metabolic History: Reports: None Hematologic History: Reports: None Oncologic (Cancer) History: Reports: None Dermatologic History: Reports: None - Infectious Disease History Infectious Disease History: Reports: Chicken Pox - Past Surgical History GI Surgical History: Reports: Appendectomy Musculoskeletal Surgical History: Reports: Other (See Below) Other Musculoskeletal Surgeries/Procedures:: right hand surgery Social & Family History - Family History Family Medical History: Noncontributory - Tobacco Use Smoking Status *Q: Former Smoker Used Tobacco, but Quit: Yes Month Tobacco Last Used: 7 years ago Second Hand Smoke Exposure: No - Caffeine Use Caffeine Use: Reports: Energy Drinks Caffeine Use Comment: 1 drink "every now and then" - Recreational Drug Use Recreational Drug Use: No Review of Systems - Review of Systems Review Of Systems: ROS reveals no pertinent complaints other than HPI. ED EXAM, GENERAL - Physical Exam Exam: See Below Course - Vital Signs Last Recorded V/S: Last Vital Signs Temp 97.1 F 06/11/17 14:15 Pulse 102 H 06/11/17 14:15 Resp 18 06/11/17 14:15 BP 126/81 06/11/17 14:15 Pulse Ox 96 06/11/17 14:15 - Orders/Labs/Meds Orders: Active Orders 24 hr Category Date Time Status Vaccines to be Administered [RC] PER UNIT ROUTINE Care 06/11/17 14:25 Active Meds: Medications Discontinued Medications Generic Name Dose Route Start Last Admin Trade Name Freq PRN Reason Stop Dose Admin Diphtheria/Tetanus/Acell Pertussis 0.5 ml 06/11/17 14:25 Adacel IM 06/11/17 14:26 .ONCE ONE Departure - Departure Time of Disposition: 14:44 Disposition: Home, Self-Care 01 Condition: Good Clinical Impression: Contusion, Other hand sprain and strain - Discharge Information Referrals: PCP,None [Primary Care Provider] - Forms: ED Department Discharge Additional Instructions: Cock-up splint Rest Ice 20 minute intervals 3 times daily as needed Ibuprofen 400 mg 3 times daily 7-10 days Follow-up with primary care in approximately 2 weeks call number below for appropriate follow-up [facility] [address] [place] [id number] The following information is given to patients seen in the emergency department who are being discharged to home. This information is to outline your options for follow-up care. We provide all patients seen in our emergency department with a follow-up referral. The need for follow-up, as well as the timing and circumstances, are variable depending upon the specifics of your emergency department visit. If you don't have a primary care physician on staff, we will provide you with a referral. We always advise you to contact your personal physician following an emergency department visit to inform them of the circumstance of the visit and for follow-up with them and/or the need for any referrals to a consulting specialist. The emergency department will also refer you to a specialist when appropriate. This referral assures that you have the opportunity for follow-up care with a specialist. All of these measure are taken in an effort to provide you with optimal care, which includes your follow-up. Under all circumstances we always encourage you to contact your private physician who remains a resource for coordinating your care. When calling for follow-up care, please make the office aware that this follow-up is from your recent emergency room visit. If for any reason you are refused follow-up, please contact the [facility] emergency department at and asked to speak to the emergency department charge nurse. - My Orders Last 24 Hours: My Active Orders 06/11/17 14:25 Vaccines to be Administered [RC] PER UNIT ROUTINE - Assessment/Plan Last 24 Hours: My Active Orders 06/11/17 14:25 Vaccines to be Administered [RC] PER UNIT ROUTINE
--- NOTE | 2017-06-11 14:40 | CR ---
Right hand Clinical history: Pain after punching a wall Comparison: None Findings the joint spaces are well-preserved. There is no radiographic evidence of metacarpal fractur e. Particularly no injury to the fifth metacarpal is identified. Carpal bones and wrist appear normal . Impression: No acute bony abnormalities
[2017-06-11 15:56] VITALS: BP 144/79
== END 2017-06-11 15:56 | disposition home or self-care (01) ==
LOC: MW.ED 14:00
DX: S66.911A Strain of unspecified muscle, fascia and tendon at wrist and hand level, right hand, initial encounter (principal); S63.91XA Sprain of unspecified part of right wrist and hand, initial encounter; Z87.891 Personal history of nicotine dependence; Z23 Encounter for immunization; W22.01XA Walked into wall, initial encounter
CPT/HCPCS: 73130-26-RT; 73130-RT; 90471; 90715; 99283; 99283-25